=== PATIENT | female | born 1985 | race Caucasian/White ===

== ENCOUNTER 2024-07-18 08:09 | Outpatient (AMB) | payer MEDICAID, SELFPAY ==
[2024-07-18 08:27] VITALS: BP 122/81; PULSE 66; RESP 18; TEMP 36.6; O2SAT 99; BMI 27.9
--- NOTE | 2024-07-18 08:27 | ORTHONT_ITS ---
Vital signs 07/18/24 08:27 Height 1.78 m Height Method Stated Weight 88.451 kg Weight Measurement Method Standing Scale BMI 27.9 BP 122/81 Blood Pressure Source Automatic Cuff Blood Pressure Location Right Upper Arm Position Sitting Respiration 18 Pulse 66 Pulse Source Monitor Temp 97.8 F Temp Source Temporal Artery Scan Pulse Oximetry (%) 99 Oxygen Delivery Method Room Air Med/Allergies Allergies & Medications Allergies Penicillins Allergy (Mild, Verified 07/18/24 08:29) Rash adhesive tape Allergy (Verified 07/18/24 08:29) cefazolin Adverse Reaction (Mild, Verified 07/18/24 08:29) THROAT SWELLING latex Adverse Reaction (Mild, Verified 07/18/24 08:29) Anaphylaxis Medication Reconciliation ondansetron 4 mg disintegrating tablet 4 mg PO Q8H PRN nausea and vomiting #10 tabs 05/22/23 [Rx Confirmed 07/18/24] prochlorperazine maleate 10 mg tablet (Compazine) 10 mg PO BID PRN nausea and vomiting #20 tabs 08/21/23 [Rx Confirmed 07/18/24] cyclobenzaprine 10 mg tablet 10 mg PO QAM 05/20/24 [History Confirmed 07/18/24] tramadol 50 mg tablet 50 mg PO BID PRN 05/20/24 [History Confirmed 07/18/24] meloxicam 7.5 mg tablet 7.5 mg PO QDAY #45 tabs 07/18/24 [Rx] Subjective Visit Visit for: follow up visit and x-rays Immunization / Flu Flu Vaccine in the Last 12 Months: No Flu Vaccine Exclusion Criteria: Refused by Patient History of Present Illness Chief complaint: XRAYS FOLLOW UP Patient is a 38-year-old female with bilateral lateral hip pain and back pain that radiates down the leg. I discussed with her some of the pain could be related to trochanteric bursitis. She is difficulty lying on her side. She had back surgery 2 years ago and reports continued pain since then. She seen multiple orthopedic surgeons in the past as well as a pain management doctor. She reports moderate relief with the cortisone injection Personal History Occupation: UNEMPLOYED Red flag PMH: smoker (MARIJUANA) Pain Pain level (0-10): 5 Pain duration: CONSTANT Pain location: groin, inside (medial), outside (lateral), anterior, posterior and buttock Pain quality: sharp, dull, aching, burning and shocking Pain timing: night, increases with activity and stairs Associated signs & symptoms: numbness and stiffness Ambulatory data Ambulatory device: none Treatments Improvement with previous injections: No Improvement with PT: No Improvement with NSAIDS: n/a Review of Systems Review of Systems: All systems negative unless otherwise noted in HPI. Exam Exam Patient is in no acute distress and is cooperative with the examination today. Breathing is nonlabored. In no respiratory distress. Patient has no paraspinal tenderness. Spinal deformity [cannot] be appreciated. The gait of the patient is [nonantalgic] Bilateral extremities were evaluated and demonstrates sensation intact to light touch. Palpable pedal pulses are present. No significant edema is present. Bilateral knees were examined and the patient has full strength and range of motion.. The left hip was examined. Patient was able to flex to 90 degrees, adduct to 30 degrees, abduct to 40 degrees, internally rotate to 20 degrees, and externally rotate to 20 degrees. Patient has a negative logroll. Stinchfield is negative. The patient is nontender diffusely to touch. She is tender to palpation laterally The right hip was examined. Patient was able to flex to [90] degrees, adduct to [30] degrees, abduct to [40] degrees, internally rotate to [20] degrees, and externally rotate to [20] degrees. Patient has a [negative] logroll. The stinchfield is [negative].She is tender to palpation laterally. X-rays demonstrate no joint space narrowing of her bilateral hips. There is no dysplasia. She has a long fusion from L4-S1 We reviewed her MRI of the hips bilaterally. He demonstrates mild labral tears. There is minimal arthritis. There is no avascular necrosis Assessment and Plan Problem List (1) Bilateral hip pain: Status: Acute Plan: Patient is a 38-year-old female with bilateral hip trochanteric bursitis And bilateral labral tears as well as back pain. She had a recent spinal fusion and still reports pain since then. I do think that some of this pain is multifactorial including some from the back. She received some relief with a cortisone injection of her trochanteric bursa. I would like to try a anti- inflammatory and physical therapy. I would also like to try bilateral intra- articular hip injections as she is having a lot of pain in her groin as well. Office Procedures GNS Level of Care Nursing/Assessment Patient Status: Established Patient Nursing Assessment/Reassesment: Medication Reconciliation, Update PMH in EMR and Vital Signs Coordination of Care: Complex Care and Chronic Disease 1-5, Education Complex Pt/Fam, Consent,records obtained, informed consent, Lab and Imaging orders, Results/Orders obtained and Staff clarify orders Established Patient Charge Established Patient Point Assignment: 110 Established Patient Point Charge: EP Level 3 (80-115) Past Medical History Past Medical History Have you ever been diagnosed with any of the following: Cardiology Problems Congestive Heart Failure: No Respiratory Problems Chronic Obstructive Pulmonary Disease (COPD): No Asthma: No Smoking: Yes (MARIJUANA) Smoking Cessation Counseling: No Smoking Exposure: Yes (MARIJUANA) Stomache/Intestinal Problems Obesity: Yes Genital/Urinary Problems Renal Disease: No Endocrine Problems Diabetes Mellitus Type 1: No Diabetes Mellitus Type 2: No Blood Problems Sickle Cell Disease: No Surgical History Hysterectomy: Yes
== END 2024-07-18 08:41 | disposition home or self-care (01) ==
LOC: HODSRG 08:09
PROVIDERS: PCP Specialist; Referring Provider Specialist; Supervising Provider Orthopaedic Surgery Adult Reconstructive Orthopaedic Surgery; Visit Provider Orthopaedic Surgery Adult Reconstructive Orthopaedic Surgery
DX: M25.552 Pain in left hip (principal); M25.551 Pain in right hip; M70.62 Trochanteric bursitis, left hip; M70.61 Trochanteric bursitis, right hip
CPT/HCPCS: 99213; G0463

== ENCOUNTER 2024-09-26 15:17 | Emergency (ER) | payer MEDICAID, SELFPAY ==
[2024-09-26 15:39] VITALS: BP 156/105; PULSE 97; RESP 19; TEMP 37.2; O2SAT 99
--- NOTE | 2024-09-26 15:40 | XR_ITS ---
Examination: CT abdomen and pelvis without contrast. Coronal 3-D reconstructions. Sagittal 2-D reconstructions. Date and time of exam:September 26, 2023 1704 hrs. Comparison August 23, 2023 Indications: Epigastric pain since last night CTDI: vol (mGy): 10.9 DLP: (mGycm): 618 Technique: Axial images of the abdomen have been obtained, 3 mm slice thickness Intravenous contrast material has not been administered. Low dose protocols were performed. One or more of the following dose reduction techniques were used; automated exposure control, adjustment of the mA and/or KV according to patient size, use of iterative reconstruction technique. Findings: Trace pericardial effusion No focal liver or splenic lesions No gallstones No pancreatic or adrenal mass Mild bilateral renal parenchymal scar formation No renal or ureteral calculi, no hydronephrosis 8mm fat-containing umbilical hernia No pericecal inflammatory change This study is without contrast which limits assessment for colitis or enteritis, however there is mild wall thickening diffusely involving the colon Contracted urinary bladder Absent uterus No pelvic mass Transpedicular lumbar fusion with disc spacers L4-S1 with anatomic alignment Impression: Mild bilateral renal parenchymal scar formation No renal or ureteral calculi, no hydronephrosis Mild diffuse wall thickening involving the colon, nonspecific colitis pattern Given the patient's presentation, consider hepatobiliary sonography follow-up
--- NOTE | 2024-09-26 15:41 | EDRME_ITS ---
Rapid Medical Screening Exam [facility] Arrival date/time: 09/26/24 15:17 39-year-old female with a history back surgery presents to the emergency room with a chief complaint of 10 out of 10 abdominal pain and 7 out of 10 chest pain that has been going on for the last 3 days but has progressively gotten worse. I have greeted and performed a focused initial assessment of this patient. A comprehensive ED assessment and evaluation of the patient, analysis of all test results, and completion of the medical decision making process will be conducted by additional ED providers. Chief Complaint: Abdominal Pain Vital signs: Vital Signs Temperature 98.9 F 09/26/24 15:39 Pulse Rate 97 09/26/24 15:39 Respiratory Rate 19 09/26/24 15:39 Blood Pressure 156/105 H 09/26/24 15:39 Pulse Oximetry (%) 99 09/26/24 15:39 Oxygen Delivery Method Room Air 09/26/24 15:39 Vital signs reviewed by provider: Yes
[2024-09-26 16:06] LABS: Basophils % (Auto) 0 % (0-2.5); Eosinophils # (Auto) 0.1 Thou/mm3 (0.0-0.5); Eosinophils % (Auto) 1 % (0-10); Hemoglobin 13.3 g/dL (12.0-16.0); Immature Granulocytes % (Auto) 1 % (0-0); Immature Granulocytes Auto 0.06 Thou/mm3 (0.00-0.00); Lymphocytes % (Auto) 20 % (10-50); Mean Corpuscular Volume 86 fL (80-100); Monocytes # (Auto) 0.4 Thou/mm3 (0.0-0.8); Monocytes % (Auto) 4 % (0-12); Neutrophils # (Auto) 7.4 Thou/mm3 (1.8-7.7); Neutrophils % (Auto) 74 % (37-80); Nucleated Red Blood Cell % 0 /100 WBC (0); Platelet Count 267 Thou/mm3 (140-440); RDW Standard Deviation 41.9 fL (36.4-46.3); Red Blood Count 4.43 Miln/mm3 (4.00-5.20); White Blood Count 9.9 Thou/mm3 (3.6-11.0)
[2024-09-26 16:28] LABS: B-Type Natriuretic Peptide 32 pg/mL (0-100)
[2024-09-26 16:30] LABS: Alanine Aminotransferase 10 U/L (10-49); Albumin/Globulin Ratio 1.9 (1.2-2.2); Alkaline Phosphatase 107 U/L (46-116); Anion Gap 12 (7-16); Aspartate Amino Transferase 11 U/L (0-34); BUN/Creatinine Ratio 13 Ratio (12-20); Bilirubin,Total 0.3 mg/dL (0.3-1.2); Blood Urea Nitrogen 9 mg/dL (9-23); Calcium 11.2 mg/dL (8.3-10.6); Calcium (Corrected) 11.2 mg/dL (8.5-10.1); Carbon Dioxide 25.3 mMol/L (20.0-31.0); Chloride 104 mMol/L (98-107); Creatinine (Component) 0.7 mg/dL (0.6-1.3); Globulin 2.7 gm/dL (2.3-3.5); Glucose 90 mg/dL (74-106); Lipase 62 U/L (12-53); Osmolality,Calculated 279 (275-295); Potassium 3.7 mMol/L (3.4-5.1); Sodium 141 mMol/L (136-145); Total Protein 7.7 gm/dL (5.7-8.2); Troponin I < 0.002 ng/mL (0.0-0.045); eGFR > 60 See Note
[2024-09-26] MEDS: HYDROcodone/APAP 5/325 TABLET 1 TAB PO (16:34)
[2024-09-26] MEDS: ONDANSETRON ODT 4 MG TABRAP PO ×2 (16:35→22:17)
[2024-09-26 16:40] LABS: Collection Type, Urine Clean Catch
[2024-09-26 16:52] LABS: HCG Qualitative,Urine Negative
[2024-09-26 17:07] LABS: Bilirubin,Urine Negative (Negative); Blood,Urine Negative (Negative); Clarity,Urine Clear (Clear/Hazy); Color,Urine Colorless (Lt Yel-Yel); Glucose, Urine Negative (Negative); Ketones,Urine Negative (Negative); Leukocyte Esterase,Urine Negative (Negative); Nitrite,Urine Negative (Negative); Protein,Urine Negative (Neg - Trace); RBC,Urine < 1 /hpf (0-3); Specific Gravity,Urine 1.004 (1.001-1.035); Squamous Epithelial Cell,Urine < 1 /hpf (0-5); Urobilinogen,Urine Negative mg/dL (0.0-1.0); WBC,Urine < 1 /hpf (0-5)
--- NOTE | 2024-09-26 19:08 | XR_ITS ---
Examination: Abdomen sonogram, Limited Date and time of exam: September 26, 2024 1950 hrs. Indications: Epigastric pain beginning today Technique: Real-time osborn scale transabdominal sonographic images of the upper abdomen obtained. Findings: Normal gallbladder Normal common bile duct 0.3 cm Pancreatic head 2.5 cm Liver 16.9 cm fatty infiltration smooth contour no focal liver lesions Normal hepatopedal portal venous flow Patent IVC Impression: Normal gallbladder Mild hepatomegaly fatty liver
[2024-09-26 21:23] VITALS: BP 157/96; PULSE 78; RESP 19; TEMP 36.8; O2SAT 100
--- NOTE | 2024-09-26 22:01 | PD.EDADULT ---
ED General RME/HPI General Chief complaint: Abdominal Pain Stated complaint: ABDOMINAL PAIN Time Seen by Provider: 09/26/24 21:53 Arrival date/time: 09/26/24 15:17 CC: Nausea epigastric pain low abdominal pain back pain and chest pain HPI ongoing for the past 3 days but is a history of significant back pain with back surgery going back several years. Patient is very dramatic stating that her back surgeon abandon her. The patient states that she has had a follow-up with the [facility] doctor and is waiting for outpatient HIDA scan to be scheduled. Patient medially requesting pain medication for back pain although she states this is chronic in nature. Patient complaining also of nausea without any active vomiting. RME / HPI RME / HPI narrative: 09/26/24 15:17 39-year-old female with a history back surgery presents to the emergency room with a chief complaint of 10 out of 10 abdominal pain and 7 out of 10 chest pain that has been going on for the last 3 days but has progressively gotten worse. I have greeted and performed a focused initial assessment of this patient. A comprehensive ED assessment and evaluation of the patient, analysis of all test results, and completion of the medical decision making process will be conducted by additional ED providers. Related Data Home Medications ?Medication ?Instructions ?Recorded ?Confirmed cyclobenzaprine 10 mg tablet 10 mg PO QAM 05/20/24 07/18/24 tramadol 50 mg tablet 50 mg PO BID PRN 05/20/24 07/18/24 Previous Rx's ?Medication ?Instructions ?Recorded ondansetron 4 mg disintegrating 4 mg PO Q8H PRN nausea and 05/22/23 tablet vomiting #10 tabs prochlorperazine maleate 10 mg 10 mg PO BID PRN nausea and 08/21/23 tablet (Compazine) vomiting #20 tabs meloxicam 7.5 mg tablet 7.5 mg PO QDAY #45 tabs 07/18/24 dicyclomine 20 mg tablet 20 mg PO BID #14 tabs 09/26/24 ondansetron 4 mg disintegrating 4 mg PO Q8H #20 tabs 09/26/24 tablet Allergies Allergy/AdvReac Type Severity Reaction Status Date / Time Penicillins Allergy Mild Rash Verified 09/26/24 15:21 adhesive tape Allergy Verified 09/26/24 15:21 cefazolin AdvReac Mild THROAT Verified 09/26/24 15:21 SWELLING latex AdvReac Mild Anaphylaxis Verified 09/26/24 15:21 Review of Systems Review of Systems Narrative Review of Systems: GEN: No fever, no chills, no weight loss EYES: No discharge, no visual changes, no pain HEENT: No ear pain, no congestion, no sore throat PULM: No shortness of breath, no cough, no congestion CV: No chest pain, no dyspnea on exertion, no palpitations GI: + nausea, no vomiting, no diarrhea, + pain, no constipation : No frequency, no urgency, no dysuria MUSC/SKEL: No joint pain, + chronic back pain SKIN: No rash PSYCH: No hallucinations, no depression HEME/LYMPH: No easy bleeding or bruising tendencies NEURO: No weakness, no headache Past Medical History Past Medical History NEUROLOGIC: Negative Neurological Disorders CARDIAC: Negative Cardiac Disorders (heart murmur) or Congestive Heart Failure RESPIRATORY: Positive Smoking (MARIJUANA) and Smoking Exposure (MARIJUANA); Negative Chronic Obstructive Pulmonary Disease (COPD), Asthma or Smoking Cessation Counseling GASTROINTESTINAL: Positive Gastrointestinal Disorders and Obesity GENITOURINARY: Negative Genitourinary Disorders or Renal Disease MUSCULOSKELETAL: Negative Musculoskeletal Disorders ENDOCRINE: Negative Endocrine Disorders, Diabetes Mellitus Type 1 or Diabetes Mellitus Type 2 HEMATOLOGIC: Negative Blood Disorders or Sickle Cell Disease Surgical History SURGICAL: Positive Hysterectomy and Section Social History SMOKING STATUS: Current every day smoker ED Exam Narrative Physical exam: [General: Obese traumatic but not in any acute distress Head normocephalic HEENT: Within acceptable limits Neck is supple nontender Chest equal chest rise nontender to palpation Respiratory: Clear to auscultation no wheezes crackles or rubs CV: Rate rhythm is regular no murmurs rubs or clicks Abdomen is distended secondary to body habitus soft nontender no masses positive bowel sounds all 4 quadrants Back: No CVA tenderness no spinous process tenderness from cervical spine thoracic and lumbar spine Skin: Intact no petechiae rash induration ulceration or crepitus Extremities: Moving all extremity against resistance cap refill less than 2 seconds neurosensory intact Neuro: Awake alert oriented x3 Glascow coma 15 no focal deficits] Course Quality Measures none Orders Category Date Time Status EKG (ED ONLY) *Do not use* NOW Care 09/26/24 15:[address] abdomen pelvis wo con Stat Exams 09/26/24 15:40 Completed EKG (ED Only) Stat Exams 09/26/24 15:40 Ordered US abdomen limited Stat Exams 09/26/24 19:08 Completed BNP [B-Type Natriuretic Peptide] Stat Lab 09/26/24 15:53 Completed CBC Stat Lab 09/26/24 15:53 Completed CMP [Comprehensive Metabolic Panel] Stat Lab 09/26/24 15:53 Completed HCG Qualitative,Urine Stat Lab 09/26/24 16:25 Completed Lipase Stat Lab 09/26/24 15:53 Completed Troponin I Stat Lab 09/26/24 15:53 Completed UA [Urinalysis] Stat Lab 09/26/24 16:25 Completed Urine Culture Stat Lab 09/26/24 16:25 Received HYDROcodone*/APAP 5/325 [[place] 5/325] Med 09/26/24 15:42 Discontinued 1 tab PO X1 ONE Ketorolac Inj [Toradol Inj] Med 09/26/24 22:00 Discontinued 15 mg IM X1 ONE Ondansetron Odt [Zofran Odt] Med 09/26/24 15:42 Discontinued 4 mg PO X1 ONE Ondansetron Odt [Zofran Odt] Med 09/26/24 22:00 Once 4 mg PO X1 ONE Vital Signs Vital signs: Vital Signs Temperature 98.9 F 09/26/24 15:39 Pulse Rate 97 09/26/24 15:39 Respiratory Rate 19 09/26/24 15:39 Blood Pressure 156/105 H 09/26/24 15:39 Pulse Oximetry (%) 99 09/26/24 15:39 Oxygen Delivery Method Room Air 09/26/24 15:39 [facility] Patient data External records reviewed:: [facility] previous records Clinical information provided by:: patient Social determinants that could affect healthcare access:: none Patient has the following chronic illnesses:: Chronic back pain including back surgery How is presenting disease/condition affected by chronic disease/condition?: exacerbated by Evaluation data The following diagnostics were reviewed and interpreted by me:: lab results and radiology exam(s) Lab and/or radiology exams considered but not ordered:: CBC shows no acute leukocytosis anemia thrombocytopenia CMP shows no acute electrolyte imbalances renal impairment transaminitis or T. bili elevation Lipase is slightly elevated 62 Urine is negative for UTI Urine is negative CT of the abdomen as interpreted by me read by radiology shows a mild nonspecific colitis with no other acute finding requires emergent or immediate intervention Ultrasound of the abdomen shows a normal gallbladder Interpretation Summary: Given the patient has no leukocytosis, has stable vital signs and at this time the patient can be discharged home she is apparently being followed up by GI, they do not feel the patient has an infectious colitis, patient will be given Bentyl and ondansetron for chronic nausea. She can follow-up with her PCP for pain management of her chronic back pain. Medications Medications considered but not ordered:: None Medication administrations:: Medication Administration History Ondansetron HCl (Ondansetron Odt 4 Mg Tabrap) 4 mg PO X1 ONE; Protocol Stop: 09/26/24 22:01 Discontinued Medications Hydrocodone Bitart/Acetaminophen (Hydrocodone/Apap 5/325 Tablet) 1 tab PO X1 ONE Stop: 09/26/24 15:43 Last Admin: 09/26/24 16:34 Dose: 1 tab Documented By: STEPHANIE Ketorolac Tromethamine (Ketorolac Inj 60 Mg/2 Ml Vial) 15 mg IM X1 ONE Stop: 09/26/24 22:01 Ondansetron HCl (Ondansetron Odt 4 Mg Tabrap) 4 mg PO X1 ONE; Protocol Stop: 09/26/24 15:43 Last Admin: 09/26/24 16:35 Dose: 4 mg Documented By: STEPHANIE None Consultations Consultation(s) initiated? (list below): No Diagnosis Differential Diagnosis ED Complaint MDM: Colitis gastritis cholelithiasis cholecystitis Most likely diagnosis given after review of the tests above:: Abdominal pain mild colitis Admission Indicated Admission indicated?: not indicated Explain why admission is indicated or not indicated:: Stable for outpatient follow-up Admission Request Was there a request for admission?: No Disposition Plan Disposition Plan: Discharge Discharge Attestation Discharge Attestation: The patient and all family members were given an opportunity to ask questions and understood the discharge instructions. Discharge instructions specifically effects, indications for sooner follow up or return to the emergency department, and the expected course of current diagnosis. Patient condition: Stable Medical Decision Making Differential Diagnosis Differential Diagnosis: Colitis gastritis cholelithiasis cholecystitis Lab Data 09/26/24 15:53 09/26/24 15:53 Labs: Lab Results 09/26/24 09/26/24 Range/Units 15:53 16:25 WBC 9.9 (3.6-11.0) Thou/mm3 RBC 4.43 (4.00-5.20) Miln/mm3 Hgb 13.3 (12.0-16.0) g/dL Hct 38.0 (36.0-46.0) % MCV 86 (80-100) fL MCH 30.0 (25.0-35.0) pg MCHC 35.0 (31.0-37.0) g/dl RDW Std Deviation 41.9 (36.4-46.3) fL Plt Count 267 (140-440) Thou/mm3 Neut % (Auto) 74 (37-80) % Lymph % (Auto) 20 (10-50) % [place] % (Auto) 4 (0-12) % Eos % (Auto) 1 (0-10) % Baso % (Auto) 0 (0-2.5) % Neut # (Auto) 7.4 (1.8-7.7) Thou/mm3 Lymph # (Auto) 2.0 (1.0-4.8) Thou/mm3 [place] # (Auto) 0.4 (0.0-0.8) Thou/mm3 Eos # (Auto) 0.1 (0.0-0.5) Thou/mm3 Baso # (Auto) 0.0 (0.0-0.2) Thou/mm3 Immature Gran # (Auto) 0.06 H (0.00-0.00) Thou/mm3 Absolute Nucleated RBC 0.00 (0.00-0.00) Thou/mm3 Immature Gran % 1 H (0-0) % Nucleated RBC % 0 (0) /100 WBC Sodium 141 (136-145) mMol/L Potassium 3.7 (3.4-5.1) mMol/L Chloride 104 (98-107) mMol/L Carbon Dioxide 25.3 (20.0-31.0) mMol/L Anion Gap 12 (7-16) BUN 9 (9-23) mg/dL Creatinine 0.7 (0.6-1.3) mg/dL Estim Creat Clear Calc Not Performed. eGFR > 60 (60 - ) See Note BUN/Creatinine Ratio 13 (12-20) Ratio Glucose 90 (74-106) mg/dL Calculated Osmolality 279 (275-295) Calcium 11.2 H (8.3-10.6) mg/dL Corrected Calcium 11.2 H (8.5-10.1) mg/dL Total Bilirubin 0.3 (0.3-1.2) mg/dL AST 11 (0-34) U/L ALT 10 (10-49) U/L Alkaline Phosphatase 107 (46-116) U/L Troponin I < 0.002 (0.0-0.045) ng/mL B-Natriuretic Peptide 32 (0-100) pg/mL Total Protein 7.7 (5.7-8.2) gm/dL Albumin 5.0 (3.5-5.0) gm/dL Globulin 2.7 (2.3-3.5) gm/dL Albumin/Globulin Ratio 1.9 (1.2-2.2) Lipase 62 H (12-53) U/L Ur Collection Type Clean Catch Urine Color Colorless A (Lt Yel-Yel) Urine Clarity Clear (Clear/Hazy) Urine pH 7.0 (5.0-7.0) Ur Specific [place] 1.004 (1.001-1.035) Urine Protein Negative (Neg - Trace) Urine Glucose (UA) Negative (Negative) Urine Ketones Negative (Negative) Urine Blood Negative (Negative) Urine Nitrite Negative (Negative) Urine Bilirubin Negative (Negative) Urine Urobilinogen (Auto) Negative (0.0-1.0) mg/dL Ur Leukocyte Esterase Negative (Negative) Urine RBC < 1 (0-3) /hpf Urine WBC < 1 (0-5) /hpf Ur Squamous Epith Cells < 1 (0-5) /hpf Urine Bacteria None (None) Urine HCG, Qual Negative Discharge Plan Plan Patient Disposition: HOME (Self Care) Patient condition on transfer: Stable Prescriptions/Referrals Prescriptions/Med Rec: New ondansetron 4 mg tablet,disintegrating 4 mg PO Q8H Qty: 20 0RF dicyclomine 20 mg tablet 20 mg PO BID Qty: 14 0RF No Action meloxicam 7.5 mg tablet 7.5 mg PO QDAY Qty: 45 3RF tramadol 50 mg tablet 50 mg PO BID PRN cyclobenzaprine 10 mg tablet 10 mg PO QAM ondansetron 4 mg tablet,disintegrating 4 mg PO Q8H PRN (Reason: nausea and vomiting) Qty: 10 0RF prochlorperazine maleate [Compazine] 10 mg tablet 10 mg PO BID PRN (Reason: nausea and vomiting) Qty: 20 0RF Referrals: Nanette Marie PA-C [Primary Care Provider] - In 1 week Problem List Clinical Impression: Colitis, Nausea, Chronic back pain Patient/Caregiver Discharge Instructions Education Materials: Self-Care for Low Back Pain Additional Instructions: Take the medications as needed for pain follow-up with your GI as stated Print Language: Mauritian Stand Alone Forms: Jocelyn Award Info., Patient Portal Info Letter, Work/School Release PA/VIDEO NETWORK ENGINEER Supervising Physician PA/VIDEO NETWORK ENGINEER Supervising Physician: Kehinde Roberts ENP
[2024-09-26] MEDS: KETOROLAC INJ 60 MG/2 ML VIAL 15 MG IM (22:17)
== END 2024-09-26 22:25 | disposition home or self-care (01) ==
PROVIDERS: Nurse Practitioner Family; Emergency Provider Emergency Medicine; PCP Physician Assistant
DX: K52.9 Noninfective gastroenteritis and colitis, unspecified (principal); G89.29 Other chronic pain; M54.9 Dorsalgia, unspecified; R07.9 Chest pain, unspecified
CPT/HCPCS: 36415; 74176; 76705; 80053; 81001; 81025; 83690; 83880; 84484; 85025; 87086; 93005; 96372; 99284; J1885; Q0162; A9270

== ENCOUNTER 2024-10-02 12:38 | Outpatient (RCR) | payer MEDICAID, SELFPAY ==
--- NOTE | 2024-10-02 13:00 | XR_ITS ---
Examination: GRIS, hepatobiliary radioisotope scan Gallbladder ejection fraction study. Date and time of exam: October 02, 2024 1249 hours INDICATIONS: Left upper quadrant abdominal pain intermittent epigastric pain beginning 6 months ago with nausea and diarrhea heartburn and bloating Technique: 5.9 mCi of 99M Hepatolite administered. Serial imaging then obtained from immediate through 60 minutes. 1.7 mcg selective catheter Kinevac administered for gallbladder ejection fraction study. Findings: Radioisotope activity within the liver is reasonably homogenous. Gallbladder, common bile duct small bowel activity noted Impression: Gallbladder activity Abnormal gallbladder ejection fraction, 69%
== END 2024-10-07 23:59 | disposition home or self-care (01) ==
LOC: SNUC 12:38
PROVIDERS: PCP Nurse Practitioner Family; Referring Provider Internal Medicine Gastroenterology; Visit Provider Internal Medicine Gastroenterology
DX: R93.2 Abnormal findings on diagnostic imaging of liver and biliary tract (principal)
CPT/HCPCS: 78227; A9537; J2805

== ENCOUNTER 2025-01-01 08:54 | Outpatient (AMB) | payer MEDICAID, SELFPAY ==
[2025-01-01 09:13] VITALS: BP 113/77; PULSE 75; RESP 19; TEMP 36.5; O2SAT 98; BMI 27.1
--- NOTE | 2025-01-01 09:13 | ORTHONT_ITS ---
Vital signs 01/01/25 09:13 Height 1.78 m Height Method Stated Weight 85.927 kg Weight Measurement Method Standing Scale BMI 27.1 BP 113/77 Blood Pressure Source Automatic Cuff Blood Pressure Location Right Upper Arm Position Sitting Respiration 19 Pulse 75 Pulse Source Monitor Temp 97.7 F Temp Source Temporal Artery Scan Pulse Oximetry (%) 98 Oxygen Delivery Method Room Air Med/Allergies Allergies & Medications Allergies Penicillins Allergy (Mild, Verified 01/01/25 09:15) Rash adhesive tape Allergy (Verified 01/01/25 09:15) cefazolin Adverse Reaction (Mild, Verified 01/01/25 09:15) THROAT SWELLING latex Adverse Reaction (Mild, Verified 01/01/25 09:15) Anaphylaxis Medication Reconciliation No Known Home Medications 01/01/25 [History Confirmed 01/01/25] Exam Exam Patient is in no acute distress and is cooperative with the examination today. Breathing is nonlabored. In no respiratory distress. Patient has no paraspinal tenderness. Spinal deformity [cannot] be appreciated. The gait of the patient is [nonantalgic] Bilateral extremities were evaluated and demonstrates sensation intact to light touch. Palpable pedal pulses are present. No significant edema is present. Bilateral knees were examined and the patient has full strength and range of motion.. The left hip was examined. Patient was able to flex to 90 degrees, adduct to 30 degrees, abduct to 40 degrees, internally rotate to 20 degrees, and externally rotate to 20 degrees. Patient has a negative logroll. Stinchfield is negative. The patient is nontender diffusely to touch. She is tender to palpation laterally The right hip was examined. Patient was able to flex to [90] degrees, adduct to [30] degrees, abduct to [40] degrees, internally rotate to [20] degrees, and externally rotate to [20] degrees. Patient has a [negative] logroll. The stinchfield is [negative].She is tender to palpation laterally. X-rays demonstrate no joint space narrowing of her bilateral hips. There is no dysplasia. She has a long fusion from L4-S1 We reviewed her MRI of the hips bilaterally. He demonstrates mild labral tears. There is minimal arthritis. There is no avascular necrosis Assessment and Plan Problem List (1) Bilateral hip pain: Status: Acute Plan: Patient is a 38-year-old female with bilateral hip trochanteric bursitis And bilateral labral tears as well as back pain. She had a recent spinal fusion and still reports pain since then. I do think that some of this pain is multifactorial including some from the back. She received some relief with a cortisone injection of her trochanteric bursa. She is getting Evaluated for her spine at [facility]. She had an abnormal MRI and they are currently working her up for Possible surgery. She also has a pain management doctor Office Procedures GNS Level of Care Nursing/Assessment Patient Status: Established Patient Nursing Assessment/Reassesment: Medication Reconciliation, Update PMH in EMR and Vital Signs Coordination of Care: Complex Care and Chronic Disease 1-5, Education Complex Pt/Fam, Consent,records obtained, informed consent, Results/Orders obtained and Staff clarify orders Established Patient Charge Established Patient Point Assignment: 95 Established Patient Point Charge: Level 3 (80-115) MA Intake Visit Data Collection New Patient or Established: Established Patient (seen at [facility] within 3 years) Reason for Visit:: FOLLOW UP Seen by Clinical Staff ONLY (RN/MA): No Verbal consent obtained for Telemed visit?: No Hyperbaric Technician Required: No PCP or OBGYN visit in last 3 months: Yes Hx Now: No Do You Feel Safe at Home: Yes Authorities Contacted: N/A Questionairres Past Medical History Past Medical History Have you ever been diagnosed with any of the following: Cardiology Problems Congestive Heart Failure: No Respiratory Problems Chronic Obstructive Pulmonary Disease (COPD): No Asthma: No Smoking: Yes (MARIJUANA) Smoking Cessation Counseling: No Smoking Exposure: Yes (MARIJUANA) Stomache/Intestinal Problems Obesity: Yes Genital/Urinary Problems Renal Disease: No Endocrine Problems Diabetes Mellitus Type 1: No Diabetes Mellitus Type 2: No Blood Problems Sickle Cell Disease: No Surgical History Hysterectomy: Yes Subjective Visit Visit for: follow up visit Immunization / Flu Flu Vaccine in the Last 12 Months: No Flu Vaccine Exclusion Criteria: No Exclusion Criteria History of Present Illness Chief complaint: FOLLOW UP Personal History Occupation: DISABLED Red flag PMH: none Pain Pain level (0-10): 10 Pain duration: ALL DAY Ambulatory data Ambulatory device: none Treatments Improvement with previous injections: No Improvement with PT: No Improvement with NSAIDS: no Review of Systems Review of Systems: All systems negative unless otherwise noted in HPI.
== END 2025-01-01 09:33 | disposition home or self-care (01) ==
LOC: HODSRG 08:54
PROVIDERS: PCP Nurse Practitioner Family; Referring Provider Nurse Practitioner Family; Supervising Provider Orthopaedic Surgery Adult Reconstructive Orthopaedic Surgery; Visit Provider Orthopaedic Surgery Adult Reconstructive Orthopaedic Surgery
DX: M25.552 Pain in left hip (principal); M25.551 Pain in right hip; M70.62 Trochanteric bursitis, left hip; M70.61 Trochanteric bursitis, right hip
CPT/HCPCS: 99213; G0463

== ENCOUNTER 2025-04-17 08:46 | Outpatient (AMB) | payer MEDICAID, SELFPAY ==
--- NOTE | 2025-04-17 09:08 | ORTHONT_ITS ---
Vital signs 04/17/25 09:09 Height 1.78 m Height Method Stated Weight 90.01 kg Weight Measurement Method Standing Scale BMI 28.4 BP 134/88 H Blood Pressure Source Automatic Cuff Blood Pressure Location Left Upper Arm Position Sitting Respiration 19 Pulse 126 H Pulse Source Monitor Temp 98.0 F Temp Source Temporal Artery Scan Pulse Oximetry (%) 99 Oxygen Delivery Method Room Air Med/Allergies Allergies & Medications Allergies Penicillins Allergy (Mild, Verified 04/17/25 09:09) Rash adhesive tape Allergy (Verified 04/17/25 09:09) cefazolin Adverse Reaction (Mild, Verified 04/17/25 09:09) THROAT SWELLING latex Adverse Reaction (Mild, Verified 04/17/25 09:09) Anaphylaxis Medication Reconciliation tramadol 50 mg tablet 50 mg PO QDAY 04/17/25 [History Confirmed 04/17/25] Exam Exam Patient is in no acute distress and is cooperative with the examination today. Breathing is nonlabored. In no respiratory distress. Patient has no paraspinal tenderness. Spinal deformity [cannot] be appreciated. The gait of the patient is [nonantalgic] Bilateral extremities were evaluated and demonstrates sensation intact to light touch. Palpable pedal pulses are present. No significant edema is present. Bilateral knees were examined and the patient has full strength and range of motion.. The left hip was examined. Patient was able to flex to 90 degrees, adduct to 30 degrees, abduct to 40 degrees, internally rotate to 20 degrees, and externally rotate to 20 degrees. Patient has a negative logroll. Stinchfield is negative. The patient is nontender diffusely to touch. She is tender to palpation laterally The right hip was examined. Patient was able to flex to [90] degrees, adduct to [30] degrees, abduct to [40] degrees, internally rotate to [20] degrees, and externally rotate to [20] degrees. Patient has a [negative] logroll. The stinchfield is [negative].She is tender to palpation laterally. X-rays demonstrate no joint space narrowing of her bilateral hips. There is no dysplasia. She has a long fusion from L4-S1 We reviewed her MRI of the hips bilaterally. He demonstrates mild labral tears. There is minimal arthritis. There is no avascular necrosis Assessment and Plan Problem List (1) Bilateral hip pain: Status: Acute Plan: Patient is a 38-year-old female with bilateral hip trochanteric bursitis And bilateral labral tears as well as back pain. She had a recent spinal fusion and still reports pain since then. I do think that some of this pain is multifactorial including some from the back. She received some relief with a cortisone injection of her trochanteric bursa. We will get new left hip and right knee films. Reports that this has been acting up recently. Office Procedures GNS Level of Care Nursing/Assessment Patient Status: Established Patient Nursing Assessment/Reassesment: Medication Reconciliation, Update PMH in EMR and Vital Signs Coordination of Care: Complex Care and Chronic Disease 1-5, Education Complex Pt/Fam, Consent,records obtained, informed consent, Results/Orders obtained and Staff clarify orders Established Patient Charge Established Patient Point Assignment: 95 Established Patient Point Charge: Level 3 (80-115) MA Intake Visit Data Collection New Patient or Established: Established Patient (seen at [facility] within 3 years) Reason for Visit:: FOLLOW UP Seen by Clinical Staff ONLY (RN/MA): No Verbal consent obtained for Telemed visit?: No Senior Accountant Analyst Required: No PCP or OBGYN visit in last 3 months: Yes Hx Now: No Do You Feel Safe at Home: Yes Authorities Contacted: N/A Questionairres Past Medical History Past Medical History Have you ever been diagnosed with any of the following: Cardiology Problems Congestive Heart Failure: No Respiratory Problems Chronic Obstructive Pulmonary Disease (COPD): No Asthma: No Smoking: Yes (MARIJUANA) Smoking Cessation Counseling: No Smoking Exposure: Yes (MARIJUANA) Stomache/Intestinal Problems Obesity: Yes Genital/Urinary Problems Renal Disease: No Endocrine Problems Diabetes Mellitus Type 1: No Diabetes Mellitus Type 2: No Blood Problems Sickle Cell Disease: No Surgical History Hysterectomy: Yes Subjective Visit Visit for: follow up visit and hip Immunization / Flu Flu Vaccine in the Last 12 Months: No Flu Vaccine Exclusion Criteria: No Exclusion Criteria History of Present Illness Chief complaint: FOLLOW UP Is a 39-year-old female with a personal issues and persistent pain down both legs. Reports that she has been seeing a pain management doctor who told her that it was fibromyalgia which is causing the pain. Will get left hip and right knee x-rays as this has been hurting her recently. She has been on a pain regimen Personal History Occupation: DISABLED Red flag PMH: none Pain Pain level (0-10): 10 Pain duration: ALL DAY Pain quality: sharp, dull and aching Pain timing: night and increases with activity Associated signs & symptoms: stiffness Ambulatory data Ambulatory device: none Treatments Improvement with previous injections: Yes Improvement with PT: No Improvement with NSAIDS: no Review of Systems Review of Systems: All systems negative unless otherwise noted in HPI.
[2025-04-17 09:09] VITALS: BP 134/88; PULSE 126; RESP 19; TEMP 36.7; O2SAT 99; BMI 28.4
--- NOTE | 2025-04-17 09:17 | XR_ITS ---
Examination: Bilateral hips, AP pelvis, 5 views Technique: AP, lateral views both hips, AP pelvis, 5 views Exam date and time: April 17, 2025 0937 hours INDICATIONS: Bilateral hip pain beginning 2 years ago. FINDINGS: Mild narrowing right hip joint No right or left hip fracture or dislocation Bones of the pelvis intact IMPRESSION: Mild narrowing right hip joint
--- NOTE | 2025-04-17 09:17 | XR_ITS ---
Examination: Bilateral knees 2 views Right lateral knee left lateral knee 2 views Bilateral axial knees single view TECHNIQUE: Bilateral AP knees standing single view, bilateral PA knees standing flexion single view Standing right lateral knee left lateral knee 2 views Bilateral axial knees single view Date and time: April 17, 2025 0937 hours INDICATIONS: Bilateral knee pain beginning 2 years ago. 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
== END 2025-04-17 09:12 | disposition home or self-care (01) ==
LOC: HODSRG 08:46
PROVIDERS: PCP Nurse Practitioner Family; Referring Provider Nurse Practitioner Family; Supervising Provider Orthopaedic Surgery Adult Reconstructive Orthopaedic Surgery; Visit Provider Orthopaedic Surgery Adult Reconstructive Orthopaedic Surgery
DX: M25.552 Pain in left hip (principal); M25.551 Pain in right hip; M70.62 Trochanteric bursitis, left hip; M70.61 Trochanteric bursitis, right hip; M17.0 Bilateral primary osteoarthritis of knee; S73.102D Unspecified sprain of left hip, subsequent encounter; X58.XXXD Exposure to other specified factors, subsequent encounter; M54.9 Dorsalgia, unspecified; M79.605 Pain in left leg; M79.604 Pain in right leg; M79.7 Fibromyalgia; E66.9 Obesity, unspecified; Z68.28 Body mass index [BMI] 28.0-28.9, adult
CPT/HCPCS: 73522; 73564; 99213; G0463

== ENCOUNTER 2025-04-28 08:30 | Outpatient (AMB) | payer MEDICAID, SELFPAY ==
--- NOTE | 2025-04-28 08:50 | ORTHONT_ITS ---
Vital signs 04/28/25 08:51 Height 1.78 m Height Method Stated Weight 89.046 kg Weight Measurement Method Standing Scale BMI 28.0 BP 123/82 Blood Pressure Source Automatic Cuff Blood Pressure Location Left Upper Arm Position Sitting Respiration 18 Pulse 70 Pulse Source Monitor Temp 97.9 F Temp Source Temporal Artery Scan Pulse Oximetry (%) 98 Oxygen Delivery Method Room Air Med/Allergies Allergies & Medications Allergies Penicillins Allergy (Mild, Verified 04/28/25 08:51) Rash adhesive tape Allergy (Verified 04/28/25 08:51) cefazolin Adverse Reaction (Mild, Verified 04/28/25 08:51) THROAT SWELLING latex Adverse Reaction (Mild, Verified 04/28/25 08:51) Anaphylaxis Medication Reconciliation tramadol 50 mg tablet 50 mg PO QDAY 04/17/25 [History Confirmed 04/28/25] Exam Exam Patient is in no acute distress and is cooperative with the examination today. Breathing is nonlabored. In no respiratory distress. Patient has no paraspinal tenderness. Spinal deformity [cannot] be appreciated. The gait of the patient is [nonantalgic] Bilateral extremities were evaluated and demonstrates sensation intact to light touch. Palpable pedal pulses are present. No significant edema is present. Bilateral knees were examined and the patient has full strength and range of motion.. The left hip was examined. Patient was able to flex to 90 degrees, adduct to 30 degrees, abduct to 40 degrees, internally rotate to 20 degrees, and externally rotate to 20 degrees. Patient has a negative logroll. Stinchfield is negative. The patient is nontender diffusely to touch. She is tender to palpation laterally The right hip was examined. Patient was able to flex to [90] degrees, adduct to 30 degrees, abduct to [40] degrees, internally rotate to [20] degrees, and externally rotate to [20] degrees. Patient has a [negative] logroll. The stinchfield is [negative].She is tender to palpation laterally. X-rays demonstrate no joint space narrowing of her bilateral hips. There is no dysplasia. She has a long fusion from L4-S1 We reviewed her MRI of the hips bilaterally. He demonstrates mild labral tears. There is minimal arthritis. There is no avascular necrosis Xrays demonstrate minimal arthritis of her hip and knee Assessment and Plan Problem List (1) Bilateral hip pain: Status: Acute Plan: Patient is a 38-year-old female with bilateral hip trochanteric bursitis And bilateral labral tears as well as back pain. She had a recent spinal fusion and still reports pain since then. I do think that some of this pain is multifactorial including some from the back. She received some relief with a cortisone injection of her trochanteric bursa. Xrays of the hip and knee demonstrate minimal arthritis. We recommend conservative treatment at this time.. Office Procedures GNS Level of Care Nursing/Assessment Patient Status: Established Patient Nursing Assessment/Reassesment: Medication Reconciliation, Update PMH in EMR and Vital Signs Coordination of Care: Complex Care and Chronic Disease 1-5, Education Complex Pt/Fam, Consent,records obtained, informed consent, Results/Orders obtained and Staff clarify orders Established Patient Charge Established Patient Point Assignment: 95 Established Patient Point Charge: Level 3 (80-115) MA Intake Visit Data Collection New Patient or Established: Established Patient (seen at [facility] within 3 years) Reason for Visit:: FOLLOW UP XRAY RESULTS/HIP KNEE PAIN Seen by Clinical Staff ONLY (RN/MA): No Verbal consent obtained for Telemed visit?: No Manager House Required: No PCP or OBGYN visit in last 3 months: Yes Hx Now: No Do You Feel Safe at Home: Yes Authorities Contacted: N/A Questionairres Past Medical History Past Medical History Have you ever been diagnosed with any of the following: Cardiology Problems Congestive Heart Failure: No Respiratory Problems Chronic Obstructive Pulmonary Disease (COPD): No Asthma: No Smoking: Yes (MARIJUANA) Smoking Cessation Counseling: No Smoking Exposure: Yes (MARIJUANA) Stomache/Intestinal Problems Obesity: Yes Genital/Urinary Problems Renal Disease: No Endocrine Problems Diabetes Mellitus Type 1: No Diabetes Mellitus Type 2: No Blood Problems Sickle Cell Disease: No Surgical History Hysterectomy: Yes Subjective Visit Visit for: follow up visit, hip, knee and x-rays (RESULTS) Immunization / Flu Flu Vaccine in the Last 12 Months: No Flu Vaccine Exclusion Criteria: No Exclusion Criteria History of Present Illness Chief complaint: FOLLOW UP XRAY RESULTS/HIP KNEE PAIN Is a 39-year-old female with a personal issues and persistent pain down both legs. Reports that she has been seeing a pain management doctor who told her that it was fibromyalgia which is causing the pain. she had trigger point injections recently which has not been helping Personal History Occupation: DISABLED Red flag PMH: smoker Pain Pain level (0-10): 7 Pain duration: ALL DAY Pain location: outside (lateral) Pain quality: sharp, dull and aching Pain timing: night and increases with activity Associated signs & symptoms: stiffness Ambulatory data Ambulatory device: none Treatments Improvement with previous injections: Yes Improvement with PT: No Improvement with NSAIDS: no Review of Systems Review of Systems: All systems negative unless otherwise noted in HPI.
[2025-04-28 08:51] VITALS: BP 123/82; PULSE 70; RESP 18; TEMP 36.6; O2SAT 98; BMI 28.0
== END 2025-04-28 09:24 | disposition home or self-care (01) ==
LOC: HODSRG 08:30
PROVIDERS: PCP Nurse Practitioner Family; Referring Provider Nurse Practitioner Family; Supervising Provider Orthopaedic Surgery Adult Reconstructive Orthopaedic Surgery; Visit Provider Orthopaedic Surgery Adult Reconstructive Orthopaedic Surgery
DX: M25.552 Pain in left hip (principal); M25.551 Pain in right hip; M70.62 Trochanteric bursitis, left hip; M70.61 Trochanteric bursitis, right hip; M54.9 Dorsalgia, unspecified; E66.9 Obesity, unspecified; Z68.28 Body mass index [BMI] 28.0-28.9, adult
CPT/HCPCS: 99213; G0463

== ENCOUNTER 2025-07-01 08:40 | Emergency (ER) | payer MEDICAID, SELFPAY ==
--- NOTE | 2025-07-01 | XR_ITS ---
MRI abdomen, without contrast. MRCP Date and time of exam: July 01, 2025, 1628 hours INDICATIONS: Abdominal pain radiating to the back with diarrhea several weeks, thickened gallbladder wall on gallbladder sonogram July 01, 2025 Technique: Multiple axial and coronal images of the abdomen have been obtained with the Siemens 1.5T MRI scanner. Images obtained included T1 weighted transverse images, T2-weighted transverse images, T2-weighted transverse images fat-suppressed, T2 weighted haste fat suppressed transverse images, T1 weighted images, in and out of phase images, T2-weighted coronal images, breath hold, T2 weighted haze coronal images as well as T2 weighted coronal thick slab images, MRCP. Findings: No visualized liver lesions No gallstones Minimal thickening of the gallbladder wall, no convincing findings of cholecystitis No common hepatic or common bile duct stones Negative for pancreatitis Spleen is not enlarged No hydronephrosis Abdominal aorta is normal in size IMPRESSION: Negative for cholelithiasis, negative for cholecystitis Normal common hepatic common bile duct Negative for pancreatitis
[2025-07-01 11:07] VITALS: BMI 27.1
--- NOTE | 2025-07-01 11:11 | EKG_ITS ---
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
[2025-07-01 11:24] VITALS: BP 127/87; PULSE 70; RESP 16; TEMP 36.6; O2SAT 98
--- NOTE | 2025-07-01 11:38 | XR_ITS ---
Examination: CT abdomen and pelvis without contrast. Coronal 3-D reconstructions. Sagittal 2-D reconstructions. Date and time of exam: July 01, 2025, 1406 hours, comparison September 26, 2024 INDICATIONS: Generalized abdominal pain beginning 2 weeks ago CTDI: vol (mGy): 9.49 DLP: (mGycm): 548 Technique: Axial images of the abdomen have been obtained, 3 mm slice thickness Intravenous contrast material has not been administered. Low dose protocols were performed. One or more of the following dose reduction techniques were used; automated exposure control, adjustment of the mA and/or KV according to patient size, use of iterative reconstruction technique. Findings: No focal liver or splenic lesions No gallstones No pancreatic or adrenal mass Mild renal parenchymal scar formation Aorta normal size No bowel obstruction 10 mm fat-containing umbilical hernia No pericecal inflammatory change No diverticulitis Absent uterus Contracted urinary bladder Transpedicular lumbar fusion L4-S1 IMPRESSION: Mild to moderate bilateral renal parenchymal scar formation No CT findings of appendicitis bowel obstruction or diverticulitis
--- NOTE | 2025-07-01 11:38 | XR_ITS ---
Examination: Abdomen sonogram, Limited Date and time of exam: July 01, 2025, 1225 hours INDICATIONS: Epigastric pain and diarrhea beginning 2 weeks ago Technique: Real-time osborn scale transabdominal sonographic images of the upper abdomen obtained. Findings: Negative for gallstones Gallbladder wall 0.42 cm Common bile duct 0.4 cm Pancreatic head 2.1 cm Liver 14.7 cm fatty infiltration no focal liver lesions Normal hepatopetal portal venous flow IMPRESSION: Negative for cholelithiasis Borderline thickening gallbladder wall 0.42 cm, clinical correlation advised, consider HIDA scan or MRCP follow-up as clinically warranted
--- NOTE | 2025-07-01 11:39 | PD.EDRME ---
Rapid Medical Screening Exam [facility] Arrival date/time: 07/01/25 08:40 39-year-old female presents to the emergency department for complaint of abdominal pain, back pain, diarrhea ongoing for the last couple of weeks Chief Complaint: Abdominal Pain Time Seen by Provider: 07/01/25 11:38 Vital signs: Vital Signs Temperature 97.8 F 07/01/25 11:24 Pulse Rate 70 07/01/25 11:24 Respiratory Rate 16 07/01/25 11:24 Blood Pressure 127/87 H 07/01/25 11:24 Pulse Oximetry (%) 98 07/01/25 11:24 Oxygen Delivery Method Room Air 07/01/25 11:24
[2025-07-01 12:09] LABS: Basophils # (Auto) 0.0 Thou/mm3 (0.0-0.2); Basophils % (Auto) 0 % (0-2.5); Eosinophils # (Auto) 0.1 Thou/mm3 (0.0-0.5); Eosinophils % (Auto) 2 % (0-10); Hematocrit 37.6 % (36.0-46.0); Hemoglobin 13.1 g/dL (12.0-16.0); Immature Granulocytes Auto 0.03 Thou/mm3 (0.00-0.00); Lymphocytes # (Auto) 2.2 Thou/mm3 (1.0-4.8); Lymphocytes % (Auto) 30 % (10-50); Mean Corpuscular HGB Conc 34.8 g/dl (31.0-37.0); Mean Corpuscular Hemoglobin 30.0 pg (25.0-35.0); Mean Corpuscular Volume 86 fL (80-100); Monocytes # (Auto) 0.4 Thou/mm3 (0.0-0.8); Monocytes % (Auto) 5 % (0-12); Neutrophils # (Auto) 4.5 Thou/mm3 (1.8-7.7); Neutrophils % (Auto) 62 % (37-80); Nucleated Red Blood Cell # 0.00 Thou/mm3 (0.00-0.00); Nucleated Red Blood Cell % 0 /100 WBC (0); Platelet Count 221 Thou/mm3 (140-440); RDW Standard Deviation 40.1 fL (36.4-46.3); Red Blood Count 4.37 Miln/mm3 (4.00-5.20); White Blood Count 7.3 Thou/mm3 (3.6-11.0)
[2025-07-01] MEDS: KETOROLAC INJ 60 MG/2 ML VIAL 30 MG IM (12:26)
[2025-07-01] MEDS: FAMOTIDINE 20 MG TABLET 40 MG PO (12:27)
[2025-07-01 12:35] LABS: Alanine Aminotransferase 16 U/L (10-49); Albumin, Serum 5.3 gm/dL (3.5-5.0); Albumin/Globulin Ratio 2.0 (1.2-2.2); Alkaline Phosphatase 110 U/L (46-116); Anion Gap 13 (7-16); Aspartate Amino Transferase 21 U/L (0-34); BUN/Creatinine Ratio 11 Ratio (12-20); Bilirubin,Total 0.4 mg/dL (0.3-1.2); Blood Urea Nitrogen 9 mg/dL (9-23); Calcium 10.3 mg/dL (8.3-10.6); Calcium (Corrected) 10.3 mg/dL (8.5-10.1); Carbon Dioxide 23.5 mMol/L (20.0-31.0); Chloride 105 mMol/L (98-107); Creatinine (Component) 0.8 mg/dL (0.6-1.3); Estimated Creatinine Clearance 112.4 mL/min (>60); Globulin 2.6 gm/dL (2.3-3.5); Glucose 88 mg/dL (74-106); Lipase 56 U/L (12-53); Osmolality,Calculated 278 (275-295); Potassium 4.2 mMol/L (3.4-5.1); Sodium 141 mMol/L (136-145); Total Protein 7.9 gm/dL (5.7-8.2); Troponin I < 0.002 ng/mL (0.0-0.045); eGFR > 60 See Note
[2025-07-01 12:35] LABS: Collection Type, Urine Clean Catch
[2025-07-01 12:37] LABS: Bilirubin,Urine Negative (Negative); Blood,Urine Negative (Negative); Clarity,Urine Clear (Clear/Hazy); Color,Urine Lt-Yellow (Lt Yel-Yel); Culture Indicated,Urine Not Indicated; Glucose, Urine Negative (Negative); Ketones,Urine Negative (Negative); Leukocyte Esterase,Urine Negative (Negative); Nitrite,Urine Negative (Negative); PH,Urine 6.0 (5.0-7.0); Protein,Urine Negative (Neg - Trace); RBC,Urine 2 /hpf (0-3); Specific Gravity,Urine 1.014 (1.001-1.035); Squamous Epithelial Cell,Urine 1 /hpf (0-5); Urobilinogen,Urine Negative mg/dL (0.0-1.0); WBC,Urine 1 /hpf (0-5)
[2025-07-01 14:28] LABS: Stool for WBCs Negative (Negative)
[2025-07-01 14:56] LABS: Clostridium Difficile PCR Negative (Negative)
--- NOTE | 2025-07-01 15:05 | EDNOTE_ITS ---
<Statement entered by Kanwal Olsen MD - 07/15/25 14:16> I, Kanwal Olsen MD, have reviewed the history, exam, and assessment of the patient. I have evaluated the patient independently and agree with the plan of care documented by [ ]. All diagnostic studies were reviewed and discussed. I confirm the diagnosis as documented by the Resident. I was present during the Medical Decision Making for this patient. The patient's plan of care was created between myself and the Resident and consistent with our discussion of the patient's case. ED General RME/HPI General Chief complaint: Abdominal Pain Stated complaint: DIARRHEA AND UPPER ABD PAIN Time Seen by Provider: 07/01/25 11:38 Arrival date/time: 07/01/25 08:40 RME / HPI RME / HPI narrative: 07/01/25 08:40 Stephanie is a 39 y/o female with PMHx of chronic lower back (s/p back surgery) and hip pain, IBS, and fibromylagia, who comes in for evaluation of recurrent nausea, vomiting, diarrhea and abdominal pain, located right upper quadrant and epigastric region, rated 10 out of 10 has been worsening over the past 2 weeks, described as nonbloody vomit or diarrhea. Patient reports that she has been dealing with these symptoms for some time. She says she has gotten extensive workup including abdominal ultrasound, CT scan and HIDA scan, however she previously threw up on her previous HIDA scan. She has also seen a general surgeon for evaluation of her gallbladder, however she had not gotten cholecystectomy done. She has also gotten colonoscopy done before and has been ruled out of inflammatory bowel disease and was diagnosed with inflammatory bowel syndrome. She denies any recent travel, anyone around her feeling like this or recent sick contacts. She says that she has been going through a lot of stress lately as she recently lost her job, and has been getting pain injections for her back and her hips. She also said that she she sees orthopedic surgeon, Dr. 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 She does endorse use of THC She reports this helps her abdominal pain. No other complaints at this time Related Data Home Medications ?Medication ?Instructions ?Recorded ?Confirmed tramadol 50 mg tablet 50 mg PO QDAY 04/17/2504/28 Previous Rx's ?Medication ?Instructions ?Recorded dicyclomine 20 mg tablet 20 mg PO BID PRN abdominal p ain 1 07/01/25 week #14 tabs pantoprazole 40 mg tablet,delayed 40 mg PO QDAY 1 week #7 tabs 07/01/25 release (Protonix) Allergies Allergy/AdvReac Type Severity Reaction Status Date / Time Penicillins Allergy Mild Rash Verified 07/01/25 11:11 adhesive tape Allergy Verified 07/01/25 11:11 cefazolin AdvReac Mild THROAT Verified 07/01/25 11:11 SWELLING latex AdvReac Mild Anaphylaxis Verified 07/01/25 11:11 Review of Systems Review of Systems Narrative Review of Systems: 12 point ROS reviewed and is otherwise negative unless stated directly in the HPI ED Exam Narrative Physical exam: General: AAOx3, in mild acute distress HEENT: Moist mucous membranes, conjunctiva clear, EOMI, PERRLA, Cardiovascular: S1, S2, radial pulses +2 bilat, RRR Pulmonary: CTAB bilat no cough, no wheezing GI: Tenderness upon palpitation of RUQ and epigastric region, no guarding, rigidity, rebound tenderness or distension Extremities: No presence of trace or pitting edema in lower extremities bilaterally, dorsalis pedis pulses +2 bilaterally Neuro: AAOx3, no focal motor or sensory deficits in the UE or LE bilat Psych: Good judgement, thought and behavior Course Quality Measures none Orders Category Date Time Status EKG (ED ONLY) *Do not use* NOW Care 07/01/25 11:12 Completed MRI Screening NOW Care 07/01/25 15:[address] abdomen pelvis wo con Stat Exams 07/01/25 11:38 Completed EKG (ED Only) Stat Exams 07/01/25 11:11 Draft MR MRCP Stat Exams 07/01/25 Completed US gall bladder Stat Exams 07/01/25 11:38 Completed CBC Stat Lab 07/01/25 11:52 Completed Comprehensive Metabolic Panel Stat Lab 07/01/25 11:52 Completed Drug Screen,Urine Stat Lab 07/01/25 12:27 Received Lactate (Lactic Acid) Stat Lab 07/01/25 17:20 Completed Lipase Stat Lab 07/01/25 11:52 Completed Stool for WBCs Stat Lab 07/01/25 12:23 Completed Troponin I Stat Lab 07/01/25 11:52 Completed UA, C/S IF [Urinalysis, C/S if Indicated] Stat Lab 07/01/25 12:27 Completed c diff [Clostridium Difficile PCR] Stat Lab 07/01/25 12:23 Completed Diazepam [Valium] Med 07/01/25 16:35 Active 10 mg PO X1 PRN Dicyclomine Inj [Bentyl Inj] Med 07/01/25 15:52 Discontinued 10 mg IM X1 ONE Famotidine [Pepcid] Med 07/01/25 11:38 Discontinued 40 mg PO X1 ONE Ketorolac Inj [Toradol Inj] Med 07/01/25 11:38 Discontinued 30 mg IM X1 ONE Ondansetron Odt [Zofran Odt] Med 07/01/25 15:56 Discontinued 4 mg PO X1 ONE Vital Signs Vital signs: Vital Signs Temperature 97.8 F 07/01/25 11:24 Pulse Rate 70 07/01/25 11:24 Respiratory Rate 16 07/01/25 11:24 Blood Pressure 127/87 H 07/01/25 11:24 Pulse Oximetry (%) 98 07/01/25 11:24 Oxygen Delivery Method Room Air 07/01/25 11:24 Discharge Plan Plan Patient Disposition: HOME (Self Care) Prescriptions/Referrals Prescriptions/Med Rec: New pantoprazole [Protonix] 40 mg tablet,delayed release (DR/EC) 40 mg PO QDAY 7 Days Qty: 7 0RF Rx Instructions: Take one tablet by mouth before breakfast dicyclomine 20 mg tablet 20 mg PO BID PRN (Reason: abdominal pain) 7 Days Qty: 14 0RF Rx Instructions: Take one tablet by mouth twice a day as needed No Action tramadol 50 mg tablet 50 mg PO QDAY Referrals: No Primary/Family,Physician [Primary Care Provider] - In 1 week Problem List Clinical Impression: Gastritis Patient/Caregiver Discharge Instructions Education Materials: ED Gastritis (Adult) Additional Instructions: Discharge instructions Follow-up with your PCP within 1 week Take your medicines as prescribed Take protonix, as prescribed Follow up with your PCP to refer you to a GI specialist for further management of your IBS AVOID all NSAIDs including Ibuprofen, Advil, Meloxicam, Aleeve Return to ED if your symptoms worsen or return Print Language: Maltese Stand Alone Forms: Jocelyn Award Info., Patient Portal Info Letter MDM Narrative MDM hospital course (for use when minimal MDM required): 1600: Reviewed labs, will order additional pain medicine, and antiemetics, will also order MRCP. C diff negative. 1827: MRCP reviewed and is wnl. Pt is medically cleared for discharged. She will need to follow up with her PCP in regards to her abdominal pain and diarrhea and likely need further workup with a GI doctor. Medication Administration(s) Medication Administration History Diazepam (Diazepam 5 Mg Tablet) 10 mg PO X1 PRN PRN Reason: for MRI Stop: 07/06/25 16:34 Discontinued Medications Dicyclomine HCl (Dicyclomine Inj 10 Mg/Ml 2ml Vial) 10 mg IM X1 ONE Stop: 07/01/25 15:53 Last Admin: 07/01/25 16:15 Dose: 10 mg Documented By: OA Famotidine (Famotidine 20 Mg Tablet) 40 mg PO X1 ONE Stop: 07/01/25 11:39 Last Admin: 07/01/25 12:27 Dose: 40 mg Documented By: STEPHANIE Ketorolac Tromethamine (Ketorolac Inj 60 Mg/2 Ml Vial) 30 mg IM X1 ONE Stop: 07/01/25 11:39 Last Admin: 07/01/25 12:26 Dose: 30 mg Documented By: STEPHANIE Ondansetron HCl (Ondansetron Odt 4 Mg Tabrap) 4 mg PO X1 ONE; Protocol Stop: 07/01/25 15:57 Last Admin: 07/01/25 16:16 Dose: 4 mg Documented By: STEPHANIE
[2025-07-01 15:36] LABS: Campylobacter PCR Negative (Negative); Salmonella Species PCR Negative (Negative); Shiga Toxin PCR Negative (Negative); Shigella Species PCR Negative (Negative)
[2025-07-01] MEDS: DICYCLOMINE INJ 10 MG/ML 2ML VIAL IM (16:15)
[2025-07-01] MEDS: ONDANSETRON ODT 4 MG TABRAP PO (16:16)
[2025-07-01 17:28] LABS: Lactate (Lactic Acid) 0.9 mMol/L (0.4-2.0)
[2025-07-01 18:35] LABS: Amphetamine/Methamp Scrn,U Negative (Negative); Barbiturate Screen,Urine Negative (Negative); Benzodiazepines Screen,Urine Negative (Negative); Benzoylecgonine Screen, Ur Negative (Negative); Fentanyl Screen,Urine Negative (Negative); Opiate Screen,Urine Negative (Negative); THC Screen,Urine Positive (Negative)
[2025-07-01 19:08] VITALS: PULSE 89; RESP 18; O2SAT 100
== END 2025-07-01 19:08 | disposition home or self-care (01) ==
PROVIDERS: Nurse Practitioner Primary Care; Emergency Provider Emergency Medicine
DX: K29.70 Gastritis, unspecified, without bleeding (principal); Z56.0 Unemployment, unspecified
CPT/HCPCS: 36415; 74176; 74181; 76705; 80053; 80307; 81001; 83605; 83690; 84484; 85025; 87015; 87045; 87046; 87205; 87493; 87899; 93005; 96372; 99284; J0500; J1885; Q0162; A9270